=== PATIENT | male | born 1960 | race Caucasian/White ===

== ENCOUNTER 2018-11-30 01:23 | Emergency (ER) | payer OTHER ==
[~2018-11-30] VITALS: Ht 170.2 cm; Wt 100.7 kg
[~2018-11-30 01:23] MED LIST: ATEN50TA; ENALAPRIL; ESOM20CA; GLYB5TAB3; HYDR-762; METF-480
[2018-11-30 01:32] VITALS: Ht 170.2 cm; Wt 100.7 kg
[2018-11-30] MEDS ORDERED: SOD CHLORIDE 0.9% 500 ML IV STA (02:31)
[2018-11-30] MEDS ORDERED: ONDANSETRON 4 MG INJ IV STA (02:33)
[2018-11-30] MEDS ORDERED: morphine 4 MG/ML VIAL IV STA (02:33)
[2018-11-30] MEDS ORDERED: LIDOCAINE/MYLANTA 40 ML BTL PO STA (02:33)
[2018-11-30] MEDS ORDERED: FAMOTIDINE 20 MG INJ IV STA (02:33)
[2018-11-30] MEDS ORDERED: NACL 0.9% 3 ML SYG IV SCH (04:30)
[2018-11-30] MEDS ORDERED: BISACODYL (EC) 5 MG TAB PO PRN (04:30)
[2018-11-30] MEDS ORDERED: DOCUSATE SODIUM 100 MG CAP PO PRN (04:30)
[2018-11-30] MEDS ORDERED: NITROGLYCERIN (SL) 0.4 MG TAB SL PRN (04:30)
[2018-11-30] MEDS ORDERED: ACETAMINOPHEN 325 MG TAB PO PRN (04:30)
[2018-11-30] MEDS ORDERED: SOD CHLORIDE 0.9% 500 ML IV ONE (05:00)
--- NOTE | 2018-11-30 05:17 | ERD ---
ER Documentation Chief Complaint Chief Complaint chest pain/abdominal pain x 2 days HPI This is a 58-year-old male with chest pain abdominal pain for 2 days. He says epigastric and raised up to the middle of the chest. History of hypertension, diabetes, hypercholesterolemia. Denies fevers or chills. Pain is mild to moderate intensity with no exacerbating alleviating factors. Denies any other current issues ROS All systems reviewed and are negative except as per history of present illness. Medications Home Meds Reported Medications [Enalapril] No Conflict Check 07/23/10 Atenolol* (Atenolol*) 50 Mg Tablet 07/23/10 Esomeprazole Mag Trihydrate (Nexium) 20 Mg Capsule. 07/23/10 Glyburide* (Glyburide*) 5 Mg Tablet 07/23/10 Metformin* (Glucophage*) 850 Mg Tablet 07/23/10 Hydrocodone Bit-Acetaminophen* ([place]*) 1 Tab Tablet 07/23/10 Allergies Allergies: Coded Allergies: No Known Allergies (Verified Allergy, Mild, 09/13/10) PMhx/Soc History of Surgery: No Anesthesia Reaction: No Hx Neurological Disorder: No Hx Respiratory Disorders: No Hx Cardiac Disorders: Yes (HTN) Hx Psychiatric Problems: No Hx Miscellaneous Medical Probl: No Hx Alcohol Use: No Hx Substance Use: No Hx Tobacco Use: No Smoking Status: Never smoker Physical Exam Vitals Vital Signs Date Temp Pulse Resp B/P (MAP) Pulse Ox O2 O2 Flow FiO2 Time Delivery Rate 11/30/18 85 19 164/82 97 Room Air 02:35 (109) 11/30/18 99.2 92 18 164/86 99 01:32 (112) Physical Exam Const: No acute distress Head: Atraumatic Eyes: Normal Conjunctiva ENT: Normal External Ears, Nose and Mouth. Neck: Full range of motion. No meningismus. Resp: Clear to auscultation bilaterally Cardio: Regular rate and rhythm, no murmurs Abd: Soft, non tender, non distended. Normal bowel sounds Skin: No petechiae or rashes Back: No midline or flank tenderness Ext: No cyanosis, or edema Neur: Awake and alert Psych: Normal Mood and Affect Result Diagram: 11/30/18 0251 11/30/18 0251 Results 24 hrs Laboratory Tests Test 11/30/18 02:51 White Blood Count 4.3 10^3/ul Red Blood Count 3.87 10^6/ul Hemoglobin 10.5 g/dl Hematocrit 32.5 % Mean Corpuscular Volume 84.0 fl Mean Corpuscular Hemoglobin 27.1 pg Mean Corpuscular Hemoglobin Concent 32.3 g/dl Red Cell Distribution Width 13.3 % Platelet Count 167 10^3/UL Mean Platelet Volume 10.1 fl Immature Granulocytes % 0.500 % Neutrophils % 70.1 % Lymphocytes % 17.4 % Monocytes % 9.4 % Eosinophils % 2.4 % Basophils % 0.2 % Nucleated Red Blood Cells % 0.0 /100WBC Immature Granulocytes # 0.020 10^3/ul Neutrophils # 3.0 10^3/ul Lymphocytes # 0.7 10^3/ul Monocytes # 0.4 10^3/ul Eosinophils # 0.1 10^3/ul Basophils # 0.0 10^3/ul Nucleated Red Blood Cells # 0.0 10^3/ul Sodium Level 143 mmol/L Potassium Level 4.3 mmol/L Chloride Level 106 mmol/L Carbon Dioxide Level 25 mmol/L Anion Gap 12 Blood Urea Nitrogen 15 mg/dl Creatinine 1.41 mg/dl Est Glomerular Filtrat Rate mL/min 52 mL/min Glucose Level 194 mg/dl Calcium Level 9.2 mg/dl Total Bilirubin 0.2 mg/dl Direct Bilirubin 0.00 mg/dl Indirect Bilirubin 0.2 mg/dl Aspartate Amino Transf (AST/SGOT) 22 IU/L Alanine Aminotransferase (ALT/SGPT) 22 IU/L Alkaline Phosphatase 81 IU/L Troponin I < 0.012 ng/ml B-Type Natriuretic Peptide 128 PG/ML Total Protein 6.8 g/dl Albumin 3.9 g/dl Globulin 2.90 g/dl Albumin/Globulin Ratio 1.34 Lipase 133 U/L Current Medications Medications Dose Sig/Maricruz Start Time Status Last (Trade) Ordered Route PRN Stop Time Admin Dose Reason Admin Sodium 500 ml @ Q1H STAT 11/30/18 DC 11/30/18 Chloride 500 mls/hr IV 02:31 03:34 11/30/18 03:30 Morphine 4 mg ONCE STAT 11/30/18 DC 11/30/18 Sulfate IV 02:33 03:33 (morphine) 11/30/18 02:34 Ondansetron 4 mg ONCE STAT 11/30/18 DC 11/30/18 HCl (Zofran IV 02:33 03:33 Inj) 11/30/18 02:34 Famotidine 20 mg ONCE STAT 11/30/18 DC 11/30/18 (Pepcid Iv) IV 02:33 03:33 11/30/18 02:34 40 ml ONCE STAT 11/30/18 DC 11/30/18 Miscellaneous PO 02:33 03:33 Medication 11/30/18 02:34 (Gi Cocktail (2)) IV Flush 3 ml PER 11/30/18 (NS 3 ml) PROTOCOL IV 04:30 1 tab Q5M PRN 11/30/18 Nitroglycerin SL .CHEST 04:30 PAIN (Nitroglyceri n (Sl Tab) 0.4 Mg) 650 mg Q6H PRN 11/30/18 Acetaminophen PO .PAIN 1-3 04:30 (Tylenol OR TEMP Tab) Docusate 100 mg Q12H PRN 11/30/18 Sodium PO 04:30 (Colace) .CONSTIPATION Bisacodyl 5 mg DAILY PRN 11/30/18 (Dulcolax) PO 04:30 .CONSTIPATION Sodium 500 ml @ Q1H ONCE 11/30/18 Chloride 500 mls/hr IV 05:00 11/30/18 05:59 Procedures/MDM Emergency department course: Patient seen about by triage nurse. Placed in bed from evaluation. Had blood work done. A stat EKG and a stat chest x-ray. Serial exams are stable. Was given a dose of pain medication. Diagnostic studies: EKG: Rate/Rhythm: [Normal Sinus Rhythm] QRS, ST, T-waves: [No changes consistent w/ acute ischemia] Impression: [No evidence of ischemia or arrhythmia] Chest X-ray 1V Interpreted by me: Soft Tissue: No acute abnormalities Bones: No acute abnormalities Mediastinum/Cardiac Silhouette/Lungs: [No acute abnormalities] Patient's symptoms are concerning for cardiac cause will require inpatient workup and continuous monitoring. Further w/u for ischemia, arrhythmia, PE or dissection will be deferred to the inpatient team. Accepting Care Team: Current data and ongoing care discussed. Time: 5 AM Primary Provider: Patient will be transferred to [facility] for insurance capitation Consulting: Deferred to inpatient team Outstanding Data: none Departure Diagnosis: Primary Impression: Chest pain Chest pain type: unspecified Qualified Codes: R07.9 - Chest pain, unspecified Condition: Serious KENYON MEZA Nov 30, 2018 05:17
[2018-11-30 05:35] VITALS: BP 145/77; PULSE 79; RESP 20
== END 2018-11-30 05:45 | disposition left against medical advice (07) ==
LOC: E/R 01:23
DX: R07.9 Chest pain, unspecified (principal); I10 Essential (primary) hypertension; E11.9 Type 2 diabetes mellitus without complications; Z79.84 Long term (current) use of oral hypoglycemic drugs
CPT/HCPCS: 36415; 71045; 80053; 83690; 83880; 84484; 85025; 93005; 96374; 96375; J2270; J2405; J7040; Z7502; Z7610